=== PATIENT | male | born 1940 | race American Indian/Alaskan Native ===

== ENCOUNTER 2021-07-24 12:00 | Outpatient (CLI) | payer MEDICARE ==
--- NOTE | 2021-07-24 12:56 | XRay Report ---
Right hand-2 views INDICATION: RIGHT HAND PAIN. COMPARISON: None. IMPRESSION: No acute osseous abnormality. Mild soft tissue swelling along the dorsum of the hand at the level of the metacarpal heads. Normal alignment. Mild degenerative changes throughout the righ t hand, greatest at the thumb CMC joint. Signer Name: Yousuf Armendariz MD Signed: 07/24/2021 12:52 PM Workstation Name: [id number]
== END 2021-07-24 12:01 | disposition home or self-care (01) ==
LOC: XRAY 12:00
PROVIDERS: ATTEND Orthopaedic Surgery
DX: M19.041 Primary osteoarthritis, right hand (principal)